=== PATIENT | female | born 1940 | race Caucasian/White ===

== ENCOUNTER 2019-05-05 16:12 | Outpatient (CLI) | payer MEDICARE, OTHER ==
--- NOTE | 2019-05-05 22:00 | RAD ---
LEFT HIP TWO VIEWS: 05/05/19 No fracture was seen. The joint space is slightly narrowed but symmetrical with respect to the right. Arthritic changes are fairly minimal for age. IMPRESSION: No acute finding. POS: HOME
--- NOTE | 2019-05-05 22:00 | RAD ---
PELVIS 05/05/19 No fracture or area of bony destruction was seen. The bony pelvis appears intact. The symphysis shows no widening or offset and the pubic rings appear intact. The hip joints are slightly narrowed bilate rally but symmetrically so. The SI joints are unremarkable. IMPRESSION: No acute finding. POS: HOME
--- NOTE | 2019-05-05 22:00 | RAD ---
RIGHT HIP TWO VIEWS: 05/05/19 Mild joint space narrowing was seen, but the arthritic change is only mild for age. The articular alicia faces are smooth. Some faint arterial calcifications are seen. IMPRESSION: No acute findings. POS: HOME
== END 2019-05-05 16:13 | disposition home or self-care (01) ==
LOC: BURRAD 16:12
PROVIDERS: ATTEND Nurse Practitioner Family
DX: M81.0 Age-related osteoporosis without current pathological fracture (principal); M25.552 Pain in left hip; M25.551 Pain in right hip; R26.2 Difficulty in walking, not elsewhere classified; Z91.81 History of falling
CPT/HCPCS: 72170

== ENCOUNTER 2021-01-05 18:37 | Outpatient (CLI) | payer MEDICARE ==
[2021-01-05 18:46] LABS: Bilirubin Negative (Negative); Blood, Urine Negative (Negative); Clarity Cloudy (Clear); Glucose, Urine (Dipstick) Negative (Negative); Ketone, Urine Negative (Negative); Leukocyte Negative (Negative); Nitrite Positive (Negative); Protein, Urine (Dipstick) Negative (Neg-Trace)
[2021-01-05 18:51] LABS: RBC/HPF None Seen HPF (0-3); Renal Epithelial 0-3 HPF (None Seen); Squamous Epithelial 0-3 HPF (0-3); WBC/HPF 0-3 HPF (0-3)
[2021-01-05 18:52] LABS: Bacteria/HPF 4+ HPF (None Seen)
== END 2021-01-05 18:38 | disposition home or self-care (01) ==
LOC: BURMANOR 18:37
PROVIDERS: ATTEND Family Medicine
DX: R10.30 Lower abdominal pain, unspecified (principal)
CPT/HCPCS: 81003; 81015; 87077; 87086; 87186

== ENCOUNTER 2021-11-20 21:34 | Outpatient (CLI) | payer MEDICARE, OTHER | END 2021-11-20 21:35 | disposition home or self-care (01) | LOC: BURRAD 21:34 | PROVIDERS: ATTEND Registered Nurse Community Health | DX: R07.82 Intercostal pain (principal); I51.7 Cardiomegaly; M81.0 Age-related osteoporosis without current pathological fracture | CPT/HCPCS: 71046 ==

== ENCOUNTER 2022-03-16 22:59 | Emergency (ER) | payer MEDICARE, OTHER | END 2022-03-17 01:30 | LOC: BURERS 22:59 | DX: S32.591A Other specified fracture of right pubis, initial encounter for closed fracture (principal); J44.9 Chronic obstructive pulmonary disease, unspecified; I25.10 Atherosclerotic heart disease of native coronary artery without angina pectoris; K21.9 Gastro-esophageal reflux disease without esophagitis; I10 Essential (primary) hypertension; E78.5 Hyperlipidemia, unspecified; Z79.82 Long term (current) use of aspirin; Z79.899 Other long term (current) drug therapy; W19.XXXA Unspecified fall, initial encounter | CPT/HCPCS: 72170 ==